=== PATIENT | female | born 1970 | race Caucasian/White ===

== ENCOUNTER 2022-10-25 11:33 | Day surgery (SDC) | payer OTHER ==
[2022-10-25] MEDS ORDERED: Depo-Medrol 40 MG/ML IM ONE (11:34)
[2022-10-25] MEDS ORDERED: Sodium Chloride 0.9(Preservative Free) 10 ML IJ ONE (11:34)
[2022-10-25] MEDS ORDERED: Versed 2 MG/2 ML Injection ONE (12:39)
[2022-10-25] MEDS ORDERED: Lactated Ringers 1,000 ML IV ONE (13:05)
[2022-10-25] MEDS ORDERED: DIPRIVAN 200 MG/20 ML IV ONE (13:34)
[2022-10-25] MEDS ORDERED: Hydromorphone 1 mg/ml Injection ONE (13:51)
--- NOTE | 2022-10-25 16:40 | XRAY ---
Indication: Right L4-S1 transforaminal MARIANNE. Intraoperative fluoroscopy provided for 27 seconds. 5 digital spot images submitted for interpretation demonstrates posterior needle tips projecting over the expected right L4 and L5 nerve roots. Small amount of contrast injected for needle tip placement. Correlate with intraoperative findings/report.
--- NOTE | 2022-10-25 16:46 | XRAY ---
27 seconds of fluoroscopy was used in surgery for right L4-S1 transforaminal MARIANNE.
== END 2022-10-25 14:10 | disposition home or self-care (01) ==
LOC: SDC-PAIN 11:33
PROVIDERS: ATTEND Psychiatry & Neurology Pain Medicine
DX: M54.16 Radiculopathy, lumbar region (principal); Z79.899 Other long term (current) drug therapy
CPT/HCPCS: 36415; 64483; 64484; 72100; 77003; 84703; J1030; J1170; J2250; J2704; Q9966

== ENCOUNTER 2023-02-14 11:41 | Day surgery (SDC) | payer OTHER ==
[2023-02-14] MEDS ORDERED: LIDOCAINE HCL 1% 50 MG/5 ML VL PF IJ ONE (11:42)
[2023-02-14] MEDS ORDERED: Sodium Chloride 0.9(Preservative Free) 10 ML IJ ONE (11:42)
[2023-02-14] MEDS ORDERED: Depo-Medrol 40 MG/ML IM ONE (11:42)
[2023-02-14 13:49] LABS: HCG SERUM TEST NEGATIVE (NEGATIVE)
[2023-02-14] MEDS ORDERED: DIPRIVAN 200 MG/20 ML IV ONE ×2 (14:10→15:02)
[2023-02-14] MEDS ORDERED: Lactated Ringers 1,000 ML IV ONE (15:07)
--- NOTE | 2023-02-14 16:29 | XRAY ---
18 seconds of fluoroscopy was used in surgery for a lumbar MARIANNE.
--- NOTE | 2023-02-15 16:35 | XRAY ---
18 seconds of fluoroscopy was used in surgery for a lumbar MARIANNE.
== END 2023-02-14 15:45 | disposition home or self-care (01) ==
LOC: SDC-PAIN 11:41
PROVIDERS: ATTEND Psychiatry & Neurology Pain Medicine
DX: M54.16 Radiculopathy, lumbar region (principal); Z79.899 Other long term (current) drug therapy
CPT/HCPCS: 36415; 62323; 72100; 77003; 84703; J1030; J2001; J2704; Q9966

== ENCOUNTER 2023-06-13 12:02 | Day surgery (SDC) | payer OTHER ==
[2023-06-13] MEDS ORDERED: LIDOCAINE HCL 1% 50 MG/5 ML VL PF IJ ONE (12:03)
[2023-06-13] MEDS ORDERED: Depo-Medrol 40 MG/ML IM ONE (12:03)
[2023-06-13] MEDS ORDERED: Sodium Chloride 0.9(Preservative Free) 10 ML IJ ONE (12:03)
[2023-06-13 13:11] LABS: HCG URINE TEST NEGATIVE (NEGATIVE)
[2023-06-13] MEDS ORDERED: DIPRIVAN 200 MG/20 ML IV ONE (15:39)
--- NOTE | 2023-06-13 16:47 | XRAY ---
Indication: Lumbar MARIANNE. Intraoperative fluoroscopy provided for 7 seconds. 2 digital spot images submitted for interpretation demonstrates posterior needle tip projecting posterior to lumbosacral junction. Small amount of contrast injected for needle tip placement. Correlate with intraoperative findings/report.
[2023-06-13] MEDS ORDERED: Lactated Ringers 1,000 ML IV ONE (16:50)
--- NOTE | 2023-06-13 20:14 | XRAY ---
7 seconds of fluoroscopy was used in surgery for a lumbar MARIANNE.
== END 2023-06-13 16:15 | disposition home or self-care (01) ==
LOC: SDC-PAIN 12:02
PROVIDERS: ATTEND Psychiatry & Neurology Pain Medicine
DX: M54.16 Radiculopathy, lumbar region (principal)
CPT/HCPCS: 62323; 72100; 77003; 81025; J1030; J2001; J2704; Q9966

== ENCOUNTER 2023-08-30 11:03 | Day surgery (SDC) | payer OTHER ==
[2023-08-30 13:34] LABS: HCG SERUM TEST NEGATIVE (NEGATIVE)
[2023-08-30] MEDS ORDERED: DIPRIVAN 200 MG/20 ML IV ONE (15:12)
[2023-08-30] MEDS ORDERED: Xylocaine-Mpf 2% 5 Ml Vial ONE (15:14)
[2023-08-30] MEDS ORDERED: Lactated Ringers 1,000 ML IV ONE (15:43)
--- NOTE | 2023-08-30 16:25 | XRAY ---
Indication: Right C2-C4 MBB. Intraoperative fluoroscopy provided for 10 seconds. 2 digital spot image submitted for interpretation demonstrates posterior needle tips projecting over the expected right C2-C4 nerve roots. Correlate with intraoperative findings/report.
--- NOTE | 2023-08-30 16:37 | XRAY ---
10 seconds of fluoroscopy was used in surgery for a right C2-C4 MBB.
== END 2023-08-30 15:40 | disposition home or self-care (01) ==
LOC: SDC-PAIN 11:03
PROVIDERS: ATTEND Psychiatry & Neurology Pain Medicine
DX: M47.812 Spondylosis without myelopathy or radiculopathy, cervical region (principal)
CPT/HCPCS: 36415; 64490; 64491; 72040; 77002; 84703; J2704

== ENCOUNTER 2023-10-24 10:36 | Day surgery (SDC) | payer OTHER ==
[2023-10-24] MEDS ORDERED: BUPIVACAINE 0.5% VIAL IJ ONE (10:37)
[2023-10-24 11:49] LABS: HCG URINE TEST NEGATIVE (NEGATIVE)
[2023-10-24] MEDS ORDERED: Versed 2 MG/2 ML Injection ONE (12:23)
[2023-10-24] MEDS ORDERED: Xylocaine-Mpf 2% 5 Ml Vial ONE (13:14)
[2023-10-24] MEDS ORDERED: DIPRIVAN 200 MG/20 ML IV ONE (13:14)
--- NOTE | 2023-10-24 14:33 | XRAY ---
Indication: Right C2-C4 MBB. Intraoperative fluoroscopy provided for 12 seconds. 2 digital spot images submitted for interpretation demonstrates posterior needle tips projecting over the expected right C2-C4 nerve roots. Correlate with intraoperative findings/report.
--- NOTE | 2023-10-24 15:07 | XRAY ---
12 seconds of fluoroscopy was used in surgery for a right C2-C4 MBB.
[2023-10-24] MEDS ORDERED: Lactated Ringers 1,000 ML IV ONE (15:33)
== END 2023-10-24 13:42 | disposition home or self-care (01) ==
LOC: SDC-PAIN 10:36
PROVIDERS: ATTEND Psychiatry & Neurology Pain Medicine
DX: M47.812 Spondylosis without myelopathy or radiculopathy, cervical region (principal)
CPT/HCPCS: 64490; 64491; 72040; 77002; 81025; J2250; J2704

== ENCOUNTER 2023-11-28 10:04 | Day surgery (SDC) | payer OTHER ==
[2023-11-28] MEDS ORDERED: BUPIVACAINE 0.5% VIAL IJ ONE (10:05)
[2023-11-28] MEDS ORDERED: Decadron 4 MG INJ IV ONE (10:05)
[2023-11-28] MEDS ORDERED: XYLOCAINE-MPF 1% 5ML SDV IJ ONE (10:05)
[2023-11-28 10:48] LABS: HCG URINE TEST NEGATIVE (NEGATIVE)
[2023-11-28] MEDS ORDERED: Versed 2 MG/2 ML Injection ONE (11:22)
[2023-11-28] MEDS ORDERED: DIPRIVAN 200 MG/20 ML IV ONE (12:31)
--- NOTE | 2023-11-28 13:20 | XRAY ---
Indication: Right C2-C4 RFA. Intraoperative fluoroscopy provided for 27 seconds. 2 digital spot images submitted for interpretation demonstrates posterior needle tips projecting over the expected right C2-C4 nerve roots. Correlate with intraoperative findings/report.
[2023-11-28] MEDS ORDERED: Lactated Ringers 1,000 ML IV ONE (14:08)
--- NOTE | 2023-11-28 15:08 | XRAY ---
27 seconds of fluoroscopy was used in surgery for a right C2-C4 RFA.
== END 2023-11-28 12:57 | disposition home or self-care (01) ==
LOC: SDC-PAIN 10:04
PROVIDERS: ATTEND Psychiatry & Neurology Pain Medicine
DX: M47.812 Spondylosis without myelopathy or radiculopathy, cervical region (principal)
CPT/HCPCS: 64635; 64636; 72040; 77002; 81025; J1100; J2250; J2704

== ENCOUNTER 2024-01-16 08:44 | Day surgery (SDC) | payer OTHER ==
[2024-01-16] MEDS ORDERED: LIDOCAINE HCL 2% 100 MG/5 ML IJ ONE (08:45)
[2024-01-16 09:16] LABS: HCG URINE TEST NEGATIVE (NEGATIVE)
[2024-01-16] MEDS ORDERED: Versed 2 MG/2 ML Injection ONE ×2 (10:04→10:30)
[2024-01-16] MEDS ORDERED: DIPRIVAN 200 MG/20 ML IV ONE (10:30)
[2024-01-16] MEDS ORDERED: Lactated Ringers 1,000 ML IV ONE (12:26)
--- NOTE | 2024-01-16 12:51 | XRAY ---
Indication: Bilateral L4-S1 MBB. Intraoperative fluoroscopy provided for 15 seconds. Single digital spot image submitted for interpretation demonstrate posterior needle tips projecting over the expected left and right L4-S1 nerve roots. Correlate with intraoperative findings/report.
--- NOTE | 2024-01-16 13:00 | XRAY ---
15 seconds of fluoroscopy was used in surgery for a bilateral L4-S1 MBB.
== END 2024-01-16 11:10 | disposition home or self-care (01) ==
LOC: SDC-PAIN 08:44
PROVIDERS: ATTEND Psychiatry & Neurology Pain Medicine
DX: M47.816 Spondylosis without myelopathy or radiculopathy, lumbar region (principal)
CPT/HCPCS: 64493; 64494; 72020; 77002; 81025; J2250; J2704

== ENCOUNTER 2024-05-21 10:11 | Day surgery (SDC) | payer OTHER ==
[2024-05-21 11:10] LABS: HCG URINE TEST NEGATIVE (NEGATIVE)
== END 2024-05-21 11:45 | disposition home or self-care (01) ==
LOC: SDC-PAIN 10:11
PROVIDERS: ATTEND Psychiatry & Neurology Pain Medicine
DX: Z53.8 Procedure and treatment not carried out for other reasons (principal)
CPT/HCPCS: 81025

== ENCOUNTER 2024-05-21 12:55 | Emergency (ER) | payer OTHER ==
[2024-05-21 13:10] VITALS: PULSE 53; TEMP 97.2; O2SAT 99
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
[2024-05-21 14:24] VITALS: BP 141/81
== END 2024-05-21 14:39 | disposition home or self-care (01) ==
LOC: ED 12:55
DX: Z87.820 Personal history of traumatic brain injury (principal); G89.29 Other chronic pain; M54.50 Low back pain, unspecified; R26.2 Difficulty in walking, not elsewhere classified; R47.81 Slurred speech; I10 Essential (primary) hypertension; Z79.899 Other long term (current) drug therapy
CPT/HCPCS: 99281

== ENCOUNTER 2024-06-25 09:57 | Day surgery (SDC) | payer OTHER ==
[2024-06-25] MEDS ORDERED: BUPIVACAINE 0.5% VIAL IJ ONE (09:58)
[2024-06-25 11:14] LABS: HCG SERUM TEST NEGATIVE (NEGATIVE)
[2024-06-25] MEDS ORDERED: DIPRIVAN 200 MG/20 ML IV ONE (12:33)
[2024-06-25] MEDS ORDERED: Lactated Ringers 1,000 ML IV ONE (12:51)
--- NOTE | 2024-06-25 13:57 | XRAY ---
Indication: Bilateral L4-S1 MBB. Intraoperative fluoroscopy provided for 8 seconds. Single digital spot image submitted for interpretation demonstrates posterior needle tips projecting over the expected left and right L4-S1 nerve roots. Correlate with intraoperative findings/report.
--- NOTE | 2024-06-25 15:13 | XRAY ---
8 seconds of fluoroscopy was used in surgery for a bilateral L4-S1 MBB.
== END 2024-06-25 12:34 | disposition home or self-care (01) ==
LOC: SDC-PAIN 09:57
PROVIDERS: ATTEND Psychiatry & Neurology Pain Medicine
DX: M47.816 Spondylosis without myelopathy or radiculopathy, lumbar region (principal)
CPT/HCPCS: 36415; 64493; 64494; 72020; 77002; 84703; J2704

== ENCOUNTER 2024-08-06 10:08 | Day surgery (SDC) | payer OTHER ==
[2024-08-06] MEDS ORDERED: Depo-Medrol 40 MG/ML IM ONE (10:09)
[2024-08-06] MEDS ORDERED: Sodium Chloride 0.9(Preservative Free) 10 ML IJ ONE (10:09)
[2024-08-06] MEDS ORDERED: LIDOCAINE HCL 1% AMPUL 5 ML IJ ONE (10:09)
[2024-08-06 10:52] LABS: HCG SERUM TEST NEGATIVE (NEGATIVE)
[2024-08-06] MEDS ORDERED: Versed 2 MG/2 ML Injection ONE (11:13)
[2024-08-06] MEDS ORDERED: DIPRIVAN 200 MG/20 ML IV ONE (11:41)
[2024-08-06] MEDS ORDERED: Lactated Ringers 1,000 ML IV ONE (12:43)
--- NOTE | 2024-08-06 12:54 | XRAY ---
Indication: Lumbar MARIANNE. Intraoperative fluoroscopy provided for 7 seconds. 3 digital spot image submitted for interpretation demonstrates posterior needle tip projecting posterior to lumbosacral junction. Small amount of contrast injected for needle tip placement. Correlate with intraoperative findings/report.
--- NOTE | 2024-08-06 13:08 | XRAY ---
7 seconds of fluoroscopy was used in surgery for a lumbar MARIANNE.
== END 2024-08-06 12:10 | disposition home or self-care (01) ==
LOC: SDC-PAIN 10:08
PROVIDERS: ATTEND Psychiatry & Neurology Pain Medicine
DX: M54.16 Radiculopathy, lumbar region (principal)
CPT/HCPCS: 36415; 62323; 72100; 77003; 84703; J2250; J2704; Q9966

== ENCOUNTER 2024-12-03 09:51 | Day surgery (SDC) | payer MEDICARE ==
[2024-12-03] MEDS ORDERED: Depo-Medrol 40 MG/ML IM ONE (09:52)
[2024-12-03] MEDS ORDERED: BUPIVACAINE 0.5% VIAL IJ ONE (09:52)
[2024-12-03] MEDS ORDERED: LIDOCAINE HCL 1% AMPUL 5 ML IJ ONE (09:52)
[2024-12-03] MEDS ORDERED: Versed 2 MG/2 ML Injection ONE (10:51)
[2024-12-03 11:51] LABS: HCG SERUM TEST NEGATIVE (NEGATIVE)
[2024-12-03] MEDS ORDERED: propofoL IV ONE (12:13)
[2024-12-03] MEDS ORDERED: Xylocaine-Mpf 2% 5 Ml Vial ONE (12:13)
[2024-12-03] MEDS ORDERED: Hydromorphone 1 mg/ml Injection ONE (12:44)
--- NOTE | 2024-12-03 13:22 | XRAY ---
Indication: Left L4-S1 RFA. Intraoperative fluoroscopy provided for 19 seconds. 4 digital spot images submitted for interpretation demonstrates posterior needle tips projecting over the expected left L4-S1 nerve roots. Correlate with intraoperative findings/report.
--- NOTE | 2024-12-03 14:57 | XRAY ---
19 seconds of fluoroscopy was used in surgery for a left L4-S1 RFA.
== END 2024-12-03 13:11 | disposition home or self-care (01) ==
LOC: SDC-PAIN 09:51
PROVIDERS: ATTEND Psychiatry & Neurology Pain Medicine
DX: M47.817 Spondylosis without myelopathy or radiculopathy, lumbosacral region (principal)
CPT/HCPCS: 36415; 64635; 64636; 72100; 77002; 84703; J1171; J2250; J2704

== ENCOUNTER 2024-12-04 10:01 | Day surgery (SDC) | payer MEDICARE ==
[2024-12-04] MEDS ORDERED: Depo-Medrol 40 MG/ML IM ONE (10:02)
[2024-12-04] MEDS ORDERED: LIDOCAINE HCL 1% AMPUL 5 ML IJ ONE (10:02)
[2024-12-04] MEDS ORDERED: BUPIVACAINE 0.5% VIAL IJ ONE (10:02)
[2024-12-04] MEDS ORDERED: Versed 2 MG/2 ML Injection ONE (11:09)
[2024-12-04 11:14] LABS: HCG SERUM TEST NEGATIVE (NEGATIVE)
[2024-12-04] MEDS ORDERED: propofoL IV ONE (11:31)
[2024-12-04] MEDS ORDERED: Hydromorphone 1 mg/ml Injection ONE (12:02)
--- NOTE | 2024-12-04 13:40 | XRAY ---
Indication: Right L4-S1 RFA. Intraoperative fluoroscopy provided for 17 seconds. 4 digital spot image submitted for interpretation demonstrates posterior needle tips projecting over expected right L4-S1 nerve roots. Correlate with intraoperative findings/report.
--- NOTE | 2024-12-04 14:04 | XRAY ---
17 seconds of fluoroscopy was used in surgery for a right L4-S1 RFA.
== END 2024-12-04 12:37 | disposition home or self-care (01) ==
LOC: SDC-PAIN 10:01
PROVIDERS: ATTEND Psychiatry & Neurology Pain Medicine
DX: M54.16 Radiculopathy, lumbar region (principal); M47.817 Spondylosis without myelopathy or radiculopathy, lumbosacral region
CPT/HCPCS: 36415; 64635; 64636; 72100; 77002; 84703; J1171; J2250; J2704

== ENCOUNTER 2025-07-29 15:38 | Day surgery (SDC) | payer MEDICARE ==
[2025-07-29] MEDS ORDERED: LIDOCAINE HCL 1% 50 MG/5 ML VL IJ ONE (15:39)
[2025-07-29] MEDS ORDERED: BUPIVACAINE 0.5% VIAL IJ ONE (15:39)
[2025-07-29] MEDS ORDERED: Lactated Ringers 1,000 ML IV ONE (16:23)
[2025-07-29] MEDS ORDERED: Versed 2 MG/2 ML Injection ONE (16:27)
[2025-07-29] MEDS ORDERED: propofoL IV ONE (16:45)
[2025-07-29] MEDS ORDERED: Xylocaine-Mpf 2% 5 Ml Vial ONE (16:46)
--- NOTE | 2025-07-29 19:17 | XRAY ---
Indication: Left C2-C4 RFA. Intraoperative fluoroscopy provided for 19 seconds. 2 digital spot image submitted for interpretation demonstrates posterior needle tips projecting over expected left C2-C4 nerve roots. Correlate with intraoperative findings/report.
--- NOTE | 2025-07-30 18:23 | XRAY ---
19 seconds of fluoroscopy was used in surgery for a left C2-C4 RFA.
== END 2025-07-29 17:35 | disposition home or self-care (01) ==
LOC: SDC-PAIN 15:38
PROVIDERS: ATTEND Psychiatry & Neurology Pain Medicine
DX: M47.812 Spondylosis without myelopathy or radiculopathy, cervical region (principal)